=== PATIENT | male | born 1955 | race Caucasian/White ===

== ENCOUNTER 2022-10-26 09:57 | Observation (INO) | payer MEDICARE, OTHER ==
[~2022-10-26] VITALS: Ht 170.2 cm; Wt 81.7 kg
[~2022-10-26 09:57] MED LIST: AMOCLA875 PO; OMEP20ER; PANT40 PO; TRITOCIN430 GM; XARELTO15 MG PO; XARELTO20 MG PO
[2022-10-26 10:35] LABS: BASOPHILS ABSOLUTE AUTO 0.02 K/mm3 (0.00-0.23); BASOPHILS PERCENT AUTO 1 % (0-2); EOSINOPHILS ABSOLUTE AUTO 0.03 K/mm3 (0.00-0.68); EOSINOPHILS PERCENT AUTO 1 % (0-6); Hematocrit 44.7 % (37.0-53.0); Hemoglobin 15.3 g/dL (13.5-17.5); IMMATURE GRAN ABSOLUTE AUTO 0.01 K/mm3 (0.00-0.10); IMMATURE GRAN PERCENT AUTO 0 % (0-1); LYMPHOCYTES ABSOLUTE AUTO 0.75 K/mm3 (0.84-5.20); LYMPHOCYTES PERCENT AUTO 20 % (21-46); MONOCYTES ABSOLUTE AUTO 0.33 K/mm3 (0.16-1.47); MONOCYTES PERCENT AUTO 9 % (4-13); Mean Corpuscular HGB 30.5 pg (26.0-34.0); Mean Corpuscular HGB Conc 34.2 g/dL (31.5-36.5); Mean Corpuscular Volume 89 fL (80-100); Mean Platelet Volume 9.8 fL (9.1-12.4); NEUTROPHILS PERCENT AUTO 70 % (41-73); Platelet Count 133 K/mm3 (150-400); RDW Coefficient Variation 13.5 % (11.7-14.2); RDW Standard Deviation 44.5 fL (35.1-46.3); Red Blood Cell Count 5.02 M/mm3 (4.30-5.90); White Blood Cell Count 3.84 K/mm3 (4.00-11.30)
[2022-10-26 11:01] LABS: Albumin, Blood 3.6 g/dL (3.4-5.0); Bilirubin, Total 0.5 mg/dL (0.1-1.0); Bun/Creatinine Ratio 11.4 (12.0-20.0); Calcium, Blood 8.6 mg/dL (8.5-10.1); Creatinine, Blood 4.2 mg/dL (0.60-1.20); Globulin, Blood 3.6 g/dL (2.2-4.0); Potassium, Blood 4.4 mmol/L (3.5-5.5); Total Protein, Blood 7.2 g/dL (6.4-8.2)
[2022-10-26 13:36] LABS: Source, Urine Clean Catch
[2022-10-26 13:39] LABS: Appearance, Urine Clear (Clear); Bilirubin, Urine Neg (Neg); Blood, Urine 3+ (Neg); Color, Urine Yellow (P-Yellow); Glucose Qualitative, Urine Neg (Neg); Ketones, Urine Neg (Neg); Leukocyte Esterase, Urine Neg (Neg); Nitrite, Urine Neg (Neg); Protein, Urine Neg (Neg); Specific Gravity, Urine 1.015 (1.003-1.022); Urobilinogen, Urine NORM (Normal)
[2022-10-26 13:53] LABS: Bacteria Not Seen /hpf; Squamous Epithelial Cells Not Seen /hpf (Few); White Blood Cells, Urine Not Seen /hpf (0-5)
[2022-10-26 16:15] VITALS: BP 157/82
[2022-10-26] MEDS ORDERED: TERB250 PO (16:27)
[2022-10-26] MEDS ORDERED: THERA-D2000 UNIT PO (16:28)
[2022-10-26] MEDS ORDERED: ASCO500 PO (16:29)
[2022-10-26] MEDS ORDERED: MULTI-VITAMIN1 EAC2 PO (16:30)
[2022-10-26 17:11] LABS: Albumin, Blood 3.2 g/dL (3.4-5.0); Anion Gap 4 mmol/L (6-16); Blood Urea Nitrogen 48 mg/dL (8-24); Bun/Creatinine Ratio 12.6 (12.0-20.0); CO2, Blood 25 mmol/L (21-32); Calcium, Blood 8.4 mg/dL (8.5-10.1); Chloride, Blood 112 mmol/L (98-108); Glomerular Filtration Rate 17 (60-); Glucose, Blood 95 mg/dL (70-99); Phosphorus, Blood 3.7 mg/dL (2.5-4.9); Potassium, Blood 4.4 mmol/L (3.5-5.5); Sodium, Blood 141 mmol/L (136-145)
--- NOTE | 2022-10-26 17:15 | NUR ---
PT ARRIVED TO ROOM 355 FROM ED VIA GURNEY AT 1605 AND SETTLED IN TO ROOM. NEIGHBOR AND FRIEND AT BEDSIDE WITH PT ON ARRIVAL AND DURING INTAKE. INDEPENDENT IN ROOM. REPORTS A SMALL SOFT BM THIS EVENING BUT NO DIARRHEA. WILL GIVE REPORT TO ONCOMING SHIFT.
[2022-10-26 20:23] VITALS: BP 138/84
--- NOTE | 2022-10-27 04:36 | NUR ---
SHIFT SUMMARY A/O X4 PT AMBULATORY VERY INDEPENDANT IN ROOM AND HAS HAD NO COMPLAINTS, AWAITING FOR AM LABS AM. POSSIBLE DC LATER TODAY? NO S/S DISTRESS
[2022-10-27 05:08] VITALS: BP 126/75
[2022-10-27 05:29] LABS: BASOPHILS ABSOLUTE AUTO 0.02 K/mm3 (0.00-0.23); BASOPHILS PERCENT AUTO 0 % (0-2); EOSINOPHILS ABSOLUTE AUTO 0.03 K/mm3 (0.00-0.68); EOSINOPHILS PERCENT AUTO 1 % (0-6); Hematocrit 43.4 % (37.0-53.0); Hemoglobin 14.7 g/dL (13.5-17.5); IMMATURE GRAN ABSOLUTE AUTO 0.01 K/mm3 (0.00-0.10); IMMATURE GRAN PERCENT AUTO 0 % (0-1); LYMPHOCYTES ABSOLUTE AUTO 0.87 K/mm3 (0.84-5.20); LYMPHOCYTES PERCENT AUTO 19 % (21-46); MONOCYTES ABSOLUTE AUTO 0.39 K/mm3 (0.16-1.47); MONOCYTES PERCENT AUTO 9 % (4-13); Mean Corpuscular HGB 30.6 pg (26.0-34.0); Mean Corpuscular HGB Conc 33.9 g/dL (31.5-36.5); Mean Corpuscular Volume 90 fL (80-100); Mean Platelet Volume 9.7 fL (9.1-12.4); NEUTROPHILS ABSOLUTE AUTO 3.29 K/mm3 (1.96-9.15); NEUTROPHILS PERCENT AUTO 71 % (41-73); Platelet Count 130 K/mm3 (150-400); RDW Coefficient Variation 13.3 % (11.7-14.2); RDW Standard Deviation 44.8 fL (35.1-46.3); Red Blood Cell Count 4.81 M/mm3 (4.30-5.90); White Blood Cell Count 4.61 K/mm3 (4.00-11.30)
[2022-10-27 06:01] LABS: Albumin, Blood 3.5 g/dL (3.4-5.0); Anion Gap 6 mmol/L (6-16); Blood Urea Nitrogen 49 mg/dL (8-24); Bun/Creatinine Ratio 14.3 (12.0-20.0); CO2, Blood 27 mmol/L (21-32); Calcium, Blood 8.5 mg/dL (8.5-10.1); Chloride, Blood 107 mmol/L (98-108); Creatinine, Blood 3.43 mg/dL (0.60-1.20); Glomerular Filtration Rate 19 (60-); Glucose, Blood 94 mg/dL (70-99); Magnesium, Blood 2.5 mg/dL (1.6-2.4); Phosphorus, Blood 4.4 mg/dL (2.5-4.9); Potassium, Blood 4.1 mmol/L (3.5-5.5); Sodium, Blood 140 mmol/L (136-145)
[2022-10-27 07:50] VITALS: BP 146/95
[2022-10-27 14:36] LABS: Albumin, Blood 3.8 g/dL (3.4-5.0); Anion Gap 7 mmol/L (6-16); Blood Urea Nitrogen 51 mg/dL (8-24); Bun/Creatinine Ratio 15.9 (12.0-20.0); CO2, Blood 30 mmol/L (21-32); Calcium, Blood 9.3 mg/dL (8.5-10.1); Chloride, Blood 98 mmol/L (98-108); Glomerular Filtration Rate 21 (60-); Glucose, Blood 107 mg/dL (70-99); Phosphorus, Blood 4.3 mg/dL (2.5-4.9); Potassium, Blood 3.9 mmol/L (3.5-5.5); Sodium, Blood 135 mmol/L (136-145)
--- NOTE | 2022-10-27 16:00 | NUR ---
DISCHARGE PATIENT ADMITTED WITH PRICE RELATED TO CIPRO. AFTERNOON LABS CONTINUE TO SHOW IMPROVEMENT. PATIENT DISCHARGED TO HOME. IV DC'D. DISCHARGE INSTRUCTIONS REVIEWED WITH PATIENT. PATIENT TO FOLLOW UP WITH PCP ON TUESDAY AND HAVE REPEAT LABS. PATIENT REFUSED WHEELCHAIR AND AMBULATED OUT OF THE HOSPITAL. BELONGINGS SENT WITH PATIENT.
== END 2022-10-27 16:05 | disposition home or self-care (01) ==
LOC: ER 09:57 → MEDS 09:58
PROVIDERS: Emergency Medicine; Physician Assistant; ADMIT Family Medicine
DX: N17.9 Acute kidney failure, unspecified (principal); D69.6 Thrombocytopenia, unspecified; I10 Essential (primary) hypertension; Z88.0 Allergy status to penicillin; Z88.8 Allergy status to other drugs, medicaments and biological substances
CPT/HCPCS: 36415; 74019; 74176; 76770; 80053; 80069; 81001; 83690; 83735; 85025; 96360; 96361; 99285-25; A9270; J1940; J7030